=== PATIENT | male | born 1975 | race Two or more races ===

== ENCOUNTER 2019-08-28 13:32 | Inpatient (IN) | payer OTHER ==
[2019-08-28 14:25] VITALS: BMI 22.8
--- NOTE | 2019-08-28 19:02 | HP ---
"CIWA Score Nausea/Vomitin Muscle Tremors: 4-Moderate,w/Arms Extend Anxiety: 4-Mod. Anxious/Guarded Agitation: 4-Moderately Restless Paroxysmal Sweats: 3 (Increased facial moisture) Orientation: 1-Uncertain about Date Tacttile Disturbances: 0-None Auditory Disturbances: 0-None Visual Disturbances: 0-None Headache: 2-Mild CIWA-Ar Total Score: 21 - Admission Criteria [facility]AS[facility] Guidelines: Admission for Medically Managed Detox: Requires at least one of the followin. CIWA greater than 12 2. Seizures within the past 24 hours 3. Delirium tremens within the past 24 hours 4. Hallucinations within the past 24 hours 5. Acute intervention needed for co occurring medical disorder 6. Acute intervention needed for co occurring psychiatric disorder 7. Severe withdrawal that cannot be handled at a lower level of care (continued vomiting, continued diarrhea, abnormal vital signs) requiring intravenous medication and/or fluids 8. Patient presents the following: CIWA greater than 12 Admission Criteria Met: Admission criteria met Admission ROS S - [facility] Chief Complaint: Here because I drink alcohol and I need detox. Allergies/Adverse Reactions: Allergies Allergy/AdvReac Type Severity Reaction Status Date / Time acetaminophen [From Tylenol] Allergy Difficulty Verified 08/28/19 14:28 Breathing ibuprofen [From Advil] Allergy Difficulty Verified 08/28/19 14:28 Breathing lactose Allergy Verified 08/28/19 14:28 mayonnaise Allergy Nausea Verified 08/28/19 14:28 tuna oil Allergy Nausea Verified 08/28/19 14:28 History of Present Illness: First [facility] admission for this 43 yo presents w/ alcohol withdrawal seeking detox. was given a pills for alcohol a 5-6 days in [facility] ED for shakes from alcohol. Denies any previous detoxes. Has been trying to stop on own. States needs long- term rehab. Utox: + THC/BZO SOLOMON: 0.016 Alcohol use began at age [age]. States currently 3-5 pints/day along w/ beer. Marijuana use began at age 40. Currently smokes daily. Nicotine use began at age 36. Stopped smoking 4 months ago. Hx: Passing out r/t alcohol use. Denies seizures or overdoses. Denies any alcohol use prior to 39 PMHx: Denies MHHx;Anxiety. Insomnia. Denies S/. SHx: Domiciled. Employed. Denies legal Search Terms: LAZ PARRA, 1975 Search Date: 08/28/2019 06:57:28 PM The Drug Utilization Report below displays all of the controlled substance prescriptions, if any, that your patient has filled in the last twelve months. The information displayed on this report is compiled from pharmacy submissions to the Department, and accurately reflects the information as submitted by the pharmacies. This report was requested by: Dafne Cox | Reference #: [id number] There are no results for the search terms that you entered. Exam Limitations: No Limitations, Intoxication (Mild. SOLMOON 0.016) - Ebola screening Have you traveled outside of the country in the last 21 days: No (N) Have you had contact with anyone from an Ebola affected area: No Have you been sick,other than usual withdrawal symptoms: No Do you have a fever: No - Review of Systems Constitutional: Chills, Diaphoresis, Changes in sleep (Difficulty falling asleep ) EENT: reports: No Symptoms Reported Respiratory: reports: No Symptoms reported Cardiac: reports: No Symptoms Reported GI: reports: Nausea, Vomiting (earlier), Indigestion (Heart burn - takes suzie- seltzer) : reports: No Symptoms Reported Musculoskeletal: reports: No Symptoms Reported Integumentary: reports: No Symptoms Reported Neuro: reports: Headache (Dull mild headache back of head. Denies head injury), Tremors Endocrine: reports: Increased Thirst Hematology: reports: No Symptoms Reported Psychiatric: reports: Orientated x3 (Missed day by 1), Agitated, Anxious Patient History - PPD History Previous Implant?: Yes Documented Results: Negative w/o proof Implanted On Prior [facility] Admission?: No PPD to be Administered?: Yes - Smoking Cessation Smoking history: Former smoker Have you smoked in the past 12 months: Yes Aproximately how many cigarettes per day: 10 Hx Chewing Tobacco Use: No Initiated information on smoking cessation: Yes 'Breaking Loose' booklet given: 08/28/19 - Substance & Tx. History Hx Alcohol Use: Yes Hx Substance Use: Yes Substance Use Type: Alcohol, Marijuana Hx Substance Use Treatment: No (First attempt at detox) - Substances abused Alcohol Substance route: Oral Frequency: Daily Amount used: 2 to 3 pint of vodka Age of first use: 40 Date of last use: 08/28/19 Marijuana/Hashish Substance route: Smoking Frequency: Daily Amount used: 2 to 4 bags Age of first use: 40 Date of last use: 08/28/19 Admission Physical Exam [facility] - Vital Signs Vital Signs: Vital Signs - 24 hr 08/28/19 14:19 Temperature 97.4 F L Pulse Rate 92 H Respiratory 17 Rate Blood Pressure 147/84 - Physical General Appearance: Yes: Nourished, Mild Distress, Intoxicated (SOLOMON: 0.016), Tremorous, Sweating (Increased facial moisture) HEENTM: Yes: EOMI, Hearing grossly Normal, Normocephalic, Normal Voice, CONSTANCE, Pharynx Normal Respiratory: Yes: Lungs Clear (pULSE oX = 98 %), Normal Breath Sounds, No Respiratory Distress Neck: Yes: No masses,lesions,Nodules, Supple Breast: Yes: Breast Exam Deferred Cardiology: Yes: Regular Rhythm, Regular Rate (hr: 80), S1, S2 Abdominal: Yes: Flat, Soft, Increased Bowel Sounds, Tenderness (Mid UQ tenderness w/ palpation. No guarding. No rebound) Genitourinary: Yes: Within Normal Limits Back: Yes: Normal Inspection Musculoskeletal: Yes: full range of Motion, Gait Steady Extremities: Yes: Normal Capillary Refill, Normal Range of Motion, Tremors ( Gross tremors at rest) Neurological: Yes: sawyer helper II-XII NML intact, Alert, Motor Strength 5/5, Normal Response Integumentary: Yes: Normal Color, Warm, Diaphoresis (Increased facial moisture) Lymphatic: Yes: Within Normal Limits - Diagnostic (1) Alcohol dependence with withdrawal, uncomplicated Current Visit: Yes Status: Acute (2) Heartburn Current Visit: Yes Status: Acute (3) Cannabis dependence, uncomplicated Current Visit: Yes Status: Acute (4) Nicotine dependence in remission Current Visit: Yes Status: Acute Cleared for Admission [facility] - Detox or Rehab [facility] Level of Care: Medically Managed Detox Regimen/Protocol: Librium Keeshaeared for Rehab Admission: No Breathalyzer - Breathalyzer Breathalyzer: 0.016 Urine Drug Screen - Test Device Lot number: [id number] Expiration date: 04/08/21 - Control Is test valid?: Yes - Results Drug screen NEGATIVE: No Urine drug screen results: THC-Marijuana, BZO-Benzodiazepines Inpatient Rehab Admission - Rehab Decision to Admit Inpatient rehab admission?: No"
[2019-08-28] MEDS ORDERED: NICOTINE POLACRILEX 2 MG GUM BUC PRN (19:20)
[2019-08-28] MEDS ORDERED: MENTHOL/PHENOL 1 EACH UD MM PRN (19:20)
[2019-08-28] MEDS ORDERED: MAGNESIUM CITRATE 300 ML BOTTLE PO PRN (19:20)
[2019-08-28] MEDS ORDERED: chlordiazePOXIDE HCL 25 MG CAPSULE PO ONE (19:20)
[2019-08-28] MEDS ORDERED: MAGNESIUM HYDROX 2400MG/30ML ORAL SUSPENSION 30 ML CUP PO PRN (19:20)
[2019-08-28] MEDS ORDERED: chlordiazePOXIDE HCL 25 MG CAPSULE PO PRN (19:20)
[2019-08-28] MEDS ORDERED: MAG HYDROX/AL HYDROX/SIMETH 30 ML UNIT-DOSE CUP PO PRN (19:20)
[2019-08-28] MEDS ORDERED: ONDANSETRON *ODT* 4 MG TABLET SL PRN (19:26)
[2019-08-28] MEDS: THIAMINE HCL 100 MG TABLET (FP) PO SCH (21:59)
[2019-08-28] MEDS: PANTOPRAZOLE 20 MG TABLET (FP) PO SCH (21:59)
[2019-08-28] MEDS: MELATONIN 5 MG TABLETS PO PRN (22:00)
[2019-08-28] MEDS: chlordiazePOXIDE HCL 25 MG CAPSULE PO SCH (22:00)
[2019-08-29] MEDS: chlordiazePOXIDE HCL 25 MG CAPSULE PO SCH ×4 (06:09→22:20)
[2019-08-29 09:55] LABS: HEMATOCRIT 47.3 % (35.4-49); HEMOGLOBIN 16.4 GM/dL (11.7-16.9); MCH 31.5 pg (25.7-33.7); MCHC 34.8 g/dl (32.0-35.9); MEAN CELL VOLUME 90.7 fl (80-96); MEAN PLT VOLUME 8.5 fl (7.5-11.1); PLATELET COUNT 185 K/MM3 (134-434); RBC 5.21 M/mm3 (4.00-5.60); RDW 13.5 % (11.9-15.9); WHITE BLOOD COUNT 7.2 K/mm3 (4.0-10.0)
[2019-08-29 09:58] LABS: ALBUMIN 3.6 g/dl (3.4-5.0); BILIRUBIN,TOTAL 1.1 mg/dL (0.2-1); BLOOD UREA NITROGEN 12.3 mg/dL (7-18); CREATININE 0.9 mg/dL (0.55-1.3); POTASSIUM 4.1 mmol/L (3.5-5.1); TOT PROT 7.2 g/dl (6.4-8.2)
[2019-08-29] MEDS: PRENATAL VITAMINS W/ FOLIC ACID TABLET (FP) PO SCH (11:32)
[2019-08-29] MEDS: PANTOPRAZOLE 20 MG TABLET (FP) PO SCH ×2 (11:33→22:20)
--- NOTE | 2019-08-29 12:40 | PN ---
[facility] CIWA - CIWA Score Nausea/Vomitin-Mild Nausea/No Vomiting Muscle Tremors: 2 Anxiety: 2 Agitation: 2 Paroxysmal Sweats: No Perspiration Orientation: 0-Oriented Tacttile Disturbances: 1-Very Mild Itch/Numbness Auditory Disturbances: 0-None Visual Disturbances: 0-None Headache: 2-Mild CIWA-Ar Total Score: 10 S Progress Note (SOAP) Subjective: alert,irritable,anxious,interrupted sleep Objective: 08/29/19 12:37 Vital Signs Temperature 97.2 F L 08/29/19 09:36 Pulse Rate 83 08/29/19 09:36 Respiratory Rate 16 08/29/19 09:36 Blood Pressure 132/67 08/29/19 09:36 O2 Sat by Pulse Oximetry (%) 08/29/19 12:37 Laboratory Last Values WBC 7.2 K/mm3 (4.0-10.0) 08/29/19 08:00 RBC 5.21 M/mm3 (4.00-5.60) 08/29/19 08:00 Hgb 16.4 GM/dL (11.7-16.9) 08/29/19 08:00 Hct 47.3 % (35.4-49) 08/29/19 08:00 MCV 90.7 fl (80-96) 08/29/19 08:00 MCH 31.5 pg (25.7-33.7) 08/29/19 08:00 MCHC 34.8 g/dl (32.0-35.9) 08/29/19 08:00 RDW 13.5 % (11.9-15.9) 08/29/19 08:00 Plt Count 185 K/MM3 (134-434) 08/29/19 08:00 MPV 8.5 fl (7.5-11.1) 08/29/19 08:00 Sodium 137 mmol/L (136-145) 08/29/19 08:00 Potassium 4.1 mmol/L (3.5-5.1) 08/29/19 08:00 Chloride 103 mmol/L (98-107) 08/29/19 08:00 Carbon Dioxide 27 mmol/L (21-32) 08/29/19 08:00 Anion Gap 7 MMOL/L (8-16) L 08/29/19 08:00 BUN 12.3 mg/dL (7-18) 08/29/19 08:00 Creatinine 0.9 mg/dL (0.55-1.3) 08/29/19 08:00 Est GFR (CKD-EPI)AfAm 122.52 08/29/19 08:00 Est GFR (CKD-EPI)NonAf 105.71 08/29/19 08:00 Random Glucose 99 mg/dL (74-106) 08/29/19 08:00 Calcium 9.0 mg/dL (8.5-10.1) 08/29/19 08:00 Total Bilirubin 1.1 mg/dL (0.2-1) H 08/29/19 08:00 AST 52 U/L (15-37) H 08/29/19 08:00 ALT 157 U/L (13-61) H 08/29/19 08:00 Alkaline Phosphatase 201 U/L (45-117) H 08/29/19 08:00 Total Protein 7.2 g/dl (6.4-8.2) 08/29/19 08:00 Albumin 3.6 g/dl (3.4-5.0) 08/29/19 08:00 RPR Titer Nonreactive (NONREACTIVE) 08/29/19 08:00 HIV 1&2 Antibody Screen Negative 08/29/19 08:00 HIV P24 Antigen Negative 08/29/19 08:00 Assessment: 08/29/19 12:39 withdrawal symptom Plan: continue detox lbrium regimen,elevatio alt,ast,repeat alt,ast in am
--- NOTE | 2019-08-29 15:58 | EKG ---
Test Reason : Blood Pressure : / mmHG Vent. Rate : 079 BPM Atrial Rate : 079 BPM P-R Int : 166 ms QRS Dur : 090 ms QT Int : 362 ms P-R-T Axes : 069 031 047 degrees QTc Int : 415 ms NORMAL SINUS RHYTHM NORMAL ECG NO PREVIOUS ECGS AVAILABLE Confirmed by DOMO SAAVEDRA MD ([id number]) on 08/29/2019 3:58:39 PM Referred By: Confirmed By:DOMO SAAVEDRA MD
[2019-08-29] MEDS: THIAMINE HCL 100 MG TABLET (FP) PO SCH (22:20)
[2019-08-29] MEDS: MELATONIN 5 MG TABLETS PO PRN (22:20)
[2019-08-30] MEDS: chlordiazePOXIDE HCL 25 MG CAPSULE PO SCH ×2 (06:18→10:24)
[2019-08-30 06:29] VITALS: BP 96/61; PULSE 74; TEMP 98.1
[2019-08-30] MEDS: PANTOPRAZOLE 20 MG TABLET (FP) PO SCH (10:25)
[2019-08-30] MEDS: PRENATAL VITAMINS W/ FOLIC ACID TABLET (FP) PO SCH (10:25)
--- NOTE | 2019-08-30 11:51 | PN ---
S CIWA - CIWA Score Nausea/Vomitin-Mild Nausea/No Vomiting Muscle Tremors: 2 Anxiety: 2 Agitation: 2 Paroxysmal Sweats: No Perspiration Orientation: 0-Oriented Tacttile Disturbances: 1-Very Mild Itch/Numbness Auditory Disturbances: 0-None Visual Disturbances: 0-None Headache: 1-Very Mild CIWA-Ar Total Score: 9 [facility] Progress Note (SOAP) Subjective: alert,irritable,anxious,interrupted sleep,tremor Objective: 08/30/19 11:50 Vital Signs Temperature 98.1 F 08/30/19 06:29 Pulse Rate 74 08/30/19 06:29 Respiratory Rate 18 08/30/19 06:29 Blood Pressure 96/61 08/30/19 06:29 O2 Sat by Pulse Oximetry (%) Assessment: 08/30/19 11:54 withdrawal symptom Plan: continue detox librium regimen,patient refused alt,ast today
--- NOTE | 2019-08-30 12:13 | PN ---
S Progress Note Note: patient did not want to complete treatment,high risk of relapsing explained, patient understood, signs release ama
--- NOTE | 2019-08-30 12:17 | DS ---
[facility] Detox Discharge Summary Admission Date: 08/28/19 Discharge Date: 08/30/19 - History Present History: Alcohol Dependence, Cannabis Dependence Additional Comments: patient signed release ama Pertinent Past History: nicotine dependence - Physical Exam Results Vital Signs: Vital Signs Temperature 98.1 F 08/30/19 06:29 Pulse Rate 74 08/30/19 06:29 Respiratory Rate 18 08/30/19 06:29 Blood Pressure 96/61 08/30/19 06:29 O2 Sat by Pulse Oximetry (%) Pertinent Admission Physical Exam Findings: withdrawal signs and symptom Laboratory Last Values WBC 7.2 K/mm3 (4.0-10.0) 08/29/19 08:00 RBC 5.21 M/mm3 (4.00-5.60) 08/29/19 08:00 Hgb 16.4 GM/dL (11.7-16.9) 08/29/19 08:00 Hct 47.3 % (35.4-49) 08/29/19 08:00 MCV 90.7 fl (80-96) 08/29/19 08:00 MCH 31.5 pg (25.7-33.7) 08/29/19 08:00 MCHC 34.8 g/dl (32.0-35.9) 08/29/19 08:00 RDW 13.5 % (11.9-15.9) 08/29/19 08:00 Plt Count 185 K/MM3 (134-434) 08/29/19 08:00 MPV 8.5 fl (7.5-11.1) 08/29/19 08:00 Sodium 137 mmol/L (136-145) 08/29/19 08:00 Potassium 4.1 mmol/L (3.5-5.1) 08/29/19 08:00 Chloride 103 mmol/L (98-107) 08/29/19 08:00 Carbon Dioxide 27 mmol/L (21-32) 08/29/19 08:00 Anion Gap 7 MMOL/L (8-16) L 08/29/19 08:00 BUN 12.3 mg/dL (7-18) 08/29/19 08:00 Creatinine 0.9 mg/dL (0.55-1.3) 08/29/19 08:00 Est GFR (CKD-EPI)AfAm 122.52 08/29/19 08:00 Est GFR (CKD-EPI)NonAf 105.71 08/29/19 08:00 Random Glucose 99 mg/dL (74-106) 08/29/19 08:00 Calcium 9.0 mg/dL (8.5-10.1) 08/29/19 08:00 Total Bilirubin 1.1 mg/dL (0.2-1) H 08/29/19 08:00 AST 52 U/L (15-37) H 08/29/19 08:00 ALT 157 U/L (13-61) H 08/29/19 08:00 Alkaline Phosphatase 201 U/L (45-117) H 08/29/19 08:00 Total Protein 7.2 g/dl (6.4-8.2) 08/29/19 08:00 Albumin 3.6 g/dl (3.4-5.0) 08/29/19 08:00 RPR Titer Nonreactive (NONREACTIVE) 08/29/19 08:00 HIV 1&2 Antibody Screen Negative 08/29/19 08:00 HIV P24 Antigen Negative 08/29/19 08:00 - Medication Discharge Medications: Ambulatory Orders NK [No Known Home Medication] 08/28/19 - Diagnosis (1) Alcohol dependence with withdrawal, uncomplicated Current Visit: Yes Status: Acute (2) Cannabis dependence, uncomplicated Current Visit: Yes Status: Acute (3) Nicotine dependence in remission Current Visit: Yes Status: Acute - AMA Did Patient Leave Against Medical Advice: Yes
[2019-08-31] MEDS ORDERED: chlordiazePOXIDE HCL 10 MG CAPSULE PO PRN
[2019-08-31] MEDS ORDERED: chlordiazePOXIDE HCL 10 MG CAPSULE PO SCH (05:00)
[2019-09-01] MEDS ORDERED: chlordiazePOXIDE HCL 10 MG CAPSULE PO SCH (05:00)
[2019-09-02] MEDS ORDERED: chlordiazePOXIDE HCL 10 MG CAPSULE PO ONE (05:00)
== END 2019-08-30 12:48 | disposition left against medical advice (07) | DRG 770 ==
LOC: YASAS 13:32 → Y6N 19:39
PROVIDERS: ADMIT Allergy & Immunology; ATTEND Allergy & Immunology
PROC: HZ2ZZZZ Detoxification Services for Substance Abuse Treatment (ICD-10-PCS; principal; 2019-08-28)
DX: F10.230 Alcohol dependence with withdrawal, uncomplicated (principal); F12.20 Cannabis dependence, uncomplicated; F17.211 Nicotine dependence, cigarettes, in remission; R12 Heartburn; Z88.6 Allergy status to analgesic agent; Z91.011 Allergy to milk products; Z91.018 Allergy to other foods
CPT/HCPCS: 36415; 80053; 85027; 86593; 87389; 93005; 93010